=== PATIENT | female | born 1980 | race Two or more races ===

== ENCOUNTER 2024-12-07 06:00 | Emergency (ER) | payer OTHER ==
[~2024-12-07] VITALS: Ht 167.6 cm; Wt 90.7 kg
[~2024-12-07 06:00] MED LIST: HYDROCHLOROTHIA25 MG PO; LASIX20 MG PO
[2024-12-07 06:34] VITALS: BP 127/77; O2SAT 96
[2024-12-07] MEDS ORDERED: TOPROL XL50 M1 (06:35)
[2024-12-07] MEDS ORDERED: LOSARTAN POTAS100 MG PO (06:35)
[2024-12-07] MEDS ORDERED: KETOROLAC TROMETHAMINE 15 MG VIAL IV STA (08:26)
[2024-12-07] MEDS ORDERED: METHYLPREDNISOLONE SOD SUCC 40 MG VIAL IV STA (08:27)
[2024-12-07] MEDS ORDERED: ORPHENADRINE CITRATE 30 MG/ML AMPUL IM STA (08:27)
[2024-12-07] MEDS ORDERED: ORPHENADRINE CITRATE 30 MG/ML AMPUL ONE (08:28)
[2024-12-07] MEDS ORDERED: KETOROLAC TROMETHAMINE 30 MG VIAL ONE (08:29)
[2024-12-07] MEDS ORDERED: METHYLPREDNISOLONE SOD SUCC 40 MG VIAL ONE ×2 (08:29→08:32)
[2024-12-07] MEDS ORDERED: WATER FOR INJ.,BACTERIOSTATIC 30 ML VIAL IJ ONE (08:34)
[2024-12-07] MEDS ORDERED: NASAL MIST126 ML NASAL (14:32)
[2024-12-07] MEDS ORDERED: MEDROLPACK PO (14:32)
[2024-12-07] MEDS ORDERED: METAXALONE800 MG PO (14:32)
[2024-12-07] MEDS ORDERED: CELEBREX200MG PO (14:32)
[2024-12-07] MEDS ORDERED: TRAM1TAB98 PO (14:32)
== END 2024-12-07 15:03 | disposition home or self-care (01) ==
LOC: ER 06:13
DX: M79.651 Pain in right thigh (principal); M54.50 Low back pain, unspecified; I10 Essential (primary) hypertension; I87.2 Venous insufficiency (chronic) (peripheral)